=== PATIENT | female | born 2000 | race Two or more races ===

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

== ENCOUNTER 2018-05-29 18:50 | Inpatient (IN) | payer OTHER ==
[2018-05-29 21:36] LABS: BASO % 0.2 % (0-2.0); HEMATOCRIT 32.6 % (32.4-45.2); HEMOGLOBIN 11.3 GM/dL (10.7-15.3); LYMPH % 17.4 % (8-40); MCH 30.6 pg (25.7-33.7); MCHC 34.6 g/dl (32.0-36.0); MEAN CELL VOLUME 88.4 fl (80-96); MONO % 4.9 % (3.8-10.2); NEUT % 75.5 % (42.8-82.8); PLATELET COUNT 177 K/MM3 (134-434); RBC 3.68 M/mm3 (3.60-5.2); RDW 13.6 % (11.6-15.6); WHITE BLOOD COUNT 11.5 K/mm3 (4.0-10.0)
[2018-05-29 21:39] VITALS: BMI 37.1
[2018-05-29 21:48] LABS: INR 0.92 (0.83-1.09); PROTHROMBIN TIME (PATIENT) 10.8 SEC (9.7-13.0)
[2018-05-29 21:51] LABS: ACTIVATED PTT 23.7 SECONDS (25.2-36.5)
[2018-05-29] MEDS ORDERED: BUTORPHANOL TARTRATE 1 MG/ML VIAL ONE ×2 (21:51)
[2018-05-29] MEDS ORDERED: PROMETHAZINE HCL 25 MG/1 ML VIAL ONE (21:51)
--- NOTE | 2018-05-29 22:05 | PN ---
Progress Note (short form) - Note Progress Note: cx 3 cm, 70 vx -2 mi, fhr cat 1, irregular contraction, pitocin discussed , srba explained
[2018-05-29] MEDS ORDERED: OXYTOCIN 30 UNITS in 0.9% NS 30 UNIT/500 ML INFUS.BAG IVPB ONE (22:06)
[2018-05-29 22:07] LABS: ANION GAP 7 MMOL/L (8-16); BLOOD UREA NITROGEN 14 mg/dL (7-18); CALCIUM 8.7 mg/dL (8.5-10.1); CHLORIDE 106 mmol/L (98-107); CO2 24 mmol/L (21-32); CREATININE 0.6 mg/dL (0.55-1.3); GLUCOSE,RANDOM 78 mg/dL (74-106); POTASSIUM 4.6 mmol/L (3.5-5.1); SODIUM 137 mmol/L (136-145)
--- NOTE | 2018-05-29 22:11 | HP ---
Past Medical History - Primary Care Physician PCP:: Murali Ruiz - Admission Chief Complaint: 40 weeks, labor History of Present Illness: 18 yo f 40 weeks, c/o contraction, cx 3cm 70 vx -2 mi, fhr cat 1, irregular contraction[facility], no complication, GBS negative History Source: Patient Limitations to Obtaining History: No Limitations - Past Medical History ...: 1 ...Para: 0 ...Term: 0 ...: 0 ...Spon : 0 ...Induced : 0 ...Multiple Gestation: 0 ...LMP: 08/23/17 ... Weeks Gestation by Dates: 39.6 ...EDC by Dates: 05/30/18 ...EDC by Sono: 05/24/18 - Past Surgical History Hx Myomectomy: No Hx Transabdominal Cerclage: No - Smoking History Smoking history: Never smoked Have you smoked in the past 12 months: No Aproximately how many cigarettes per day: 0 - Alcohol/Substance Use Hx Alcohol Use: No - Social History History of Recent Travel: No Home Medications - Allergies Allergies/Adverse Reactions: Allergies Allergy/AdvReac Type Severity Reaction Status Date / Time No Known Allergies Allergy Verified 10/02/17 14:00 - Home Medications Home Medications: Ambulatory Orders Albuterol Sulfate Inhaler - [Ventolin HFA Inhaler -] 1 - 2 inh PO PRN PRN No122/Iron/Folic Acid [ Multi Tablet] 1 each PO DAILY #30 tablet MDD 1 tab 10/02/17 Albuterol Sulfate Inhaler - [Ventolin Hfa Inhaler -] 1 puff IH PRN PRN 05/04/18 Budesonide/Formeterol Fumarate [SYMBICORT 160/4.5mcg -] 1 puff IH PRN PRN Ferrous Sulfate [Iron] 325 mg PO BID 05/04/18 Review of Systems - Review of Systems Constitutional: reports: No Symptoms Eyes: reports: No Symptoms HENT: reports: No Symptoms Neck: reports: No Symptoms Cardiovascular: reports: No Symptoms Respiratory: reports: No Symptoms Gastrointestinal: reports: No Symptoms Genitourinary: reports: No Symptoms Breasts: reports: No Symptoms Reported Musculoskeletal: reports: No Symptoms Integumentary: reports: No Symptoms Neurological: reports: No Symptoms Endocrine: reports: No Symptoms Physical Exam - Maternity Vital Signs: Vital Signs Temperature 98.6 F 05/29/18 22:00 Pulse Rate 75 05/29/18 22:00 Respiratory Rate 18 05/29/18 22:00 Blood Pressure 117/62 05/29/18 22:00 O2 Sat by Pulse Oximetry (%) Constitutional: Yes: Obese Eyes: Yes: WNL, Conjunctiva Clear, EOM Intact HENT: Yes: WNL, Atraumatic, Normocephalic Neck: Yes: WNL, Supple, Trachea Midline Cardiovascular: Yes: WNL, Regular Rate and Rhythm Breast(s): Yes: WNL - Abdominal Exam/OB Fundal Height: 40 Number of Fetuses: Single Presentation: Vertex Regularity: Irregular Intensity: Moderate Monitor Mode: External Heart Rate Location: [facility] Category: I Accelerations: Uniform Decelerations: None - Vaginal Exam/OB Vaginal Bleediing: No Speculum Exam: No Dilatation (cm): 3 Effacement (%): 70 Amniotic Membrane Status: Bulging Presentation: Vertex/Position Station: -2 - Physical Exam Musculoskeletal: Yes: WNL Extremities: Yes: WNL Edema: Yes Edema: LLE: Trace, RLE: Trace Deep Tendon Reflex Grade: Normal +2 Psychiatric: Yes: WNL - Labs Lab Results: CBC, BMP 05/29/18 21:15 Hemorrhage Risk Assessment - Risk Factors Medium Risk Factors: Yes: None High Risk Factors: Yes: None Risk Score: 1 Risk Level: Medium Risk Problem List - Problems (1) 40 weeks gestation of Code(s): Z3A.40 - 40 WEEKS GESTATION OF (2) Labor established Code(s): [id number] - Assessment/Plan admit fhm pain managemet, if contraction irregular advised pitocin stimulation
[2018-05-29] MEDS ORDERED: PROMETHAZINE HCL 25 MG/1 ML VIAL IVPUSH ONE (22:15)
[2018-05-29] MEDS ORDERED: DEXTROSE 5%-LACTATED RINGERS 1,000 ML IV SCH (22:15)
[2018-05-29] MEDS ORDERED: BUTORPHANOL TARTRATE 1 MG/ML VIAL IVPUSH ONE (22:15)
[2018-05-29] MEDS ORDERED: OXYTOCIN 30 UNITS in 0.9% NS 30 UNIT/500 ML INFUS.BAG IVPB SCH (22:15)
[2018-05-30] MEDS ORDERED: FENTANYL/BUPIVACAINE/NS/PF - PCEA - 50 ML DISP.SYRIN EP ONE (00:53)
[2018-05-30] MEDS ORDERED: BUPIVACAINE HCL/PF 0.25% (2.5MG/ML) 10 ML VIAL ONE (02:02)
[2018-05-30] MEDS ORDERED: NALOXONE HCL 0.4 MG/ML VIAL IVPUSH PRN (02:29)
[2018-05-30] MEDS ORDERED: FENTANYL/BUPIVACAINE/NS/PF - PCEA - 50 ML DISP.SYRIN EP SCH (02:30)
--- NOTE | 2018-05-30 03:53 | PN ---
Progress Note (short form) - Note Progress Note: cx 5 cm, 100 vx 0, fhr cat 1, irregular contraction Problem List - Problems (1) 40 weeks gestation of Code(s): Z3A.40 - 40 WEEKS GESTATION OF (2) Labor established Code(s): [id number] -
[2018-05-30] MEDS ORDERED: OXYTOCIN 20 UNITS in 0.9% NS 20 UNIT/1,000 ML INFUS.BAG IV ONE (06:10)
[2018-05-30 06:53] LABS: COCAINE, UR NEGATIVE ng/ml (CUTOFF=300); METHADONE, UR NEGATIVE ng/ml (CUTOFF=300); OPIATES, URI NEGATIVE ng/ml (CUTOFF=300); PHENCYCLIDINE,URINE NEGATIVE ng/ml (CUTOFF=25); URINE AMPHETAMINES NEGATIVE ng/ml (CUTOFF=500); URINE BARBITURATES NEGATIVE ng/ml (CUTOFF=200); URINE BENZODIAZEPINES NEGATIVE ng/ml (CUTOFF=200)
[2018-05-30] MEDS ORDERED: LIDOCAINE HCL 1% PRESERVATIVE FREE - 30ML VIAL ONE (07:09)
[2018-05-30] MEDS ORDERED: BENZOCAINE 28 GM HEMORRHOIDAL OINTMENT TP PRN (07:24)
[2018-05-30] MEDS ORDERED: BENZOCAINE 20% 57 GM BOTTLE TP PRN (07:24)
[2018-05-30] MEDS ORDERED: WITCH HAZEL 50% (TUCKS) 40 PAD/JAR PAD TP PRN (07:24)
[2018-05-30] MEDS ORDERED: BISACODYL 10 MG SUPP.RECT RC PRN (07:24)
[2018-05-30] MEDS ORDERED: METHYLERGONOVINE MALEATE 0.2 MG/1 ML AMP IM PRN (07:24)
[2018-05-30] MEDS ORDERED: OXYTOCIN 20 UNITS in 0.9% NS 20 UNIT/1,000 ML INFUS.BAG IV SCH (07:30)
[2018-05-30] MEDS ORDERED: D5W-LR W/ 20 UNITS OXYTOCIN 1,000 ML IV SCH (07:30)
[2018-05-30] MEDS ORDERED: IBUPROFEN 600 MG TABLET (FP) PO ONE (08:15)
[2018-05-30] MEDS ORDERED: ACETAMINOPHEN 325 MG TABLET (FP) ONE (08:15)
[2018-05-30] MEDS: ACETAMINOPHEN 325 MG TABLET (FP) PO PRN (08:21)
[2018-05-30] MEDS: IBUPROFEN 600 MG TABLET (FP) PO PRN (08:22)
[2018-05-30 08:56] LABS: VENOUS PC02 55.4 mmHg (38-52); VENOUS PH 7.22 (7.32-7.42)
[2018-05-30] MEDS: PRENATAL VITAMINS W/ FOLIC ACID TABLET (FP) PO SCH (11:51)
[2018-05-30] MEDS: BUDESONIDE/FORMETEROL FUMARATE 160/4.5 mcg INHALER IH SCH ×3 (11:52→23:00)
[2018-05-30] MEDS: FERROUS SO4 325 MG TABLET (FP) PO SCH ×2 (11:52→23:00)
[2018-05-31 07:32] LABS: BASO % 0.4 % (0-2.0); EOS % 2.5 % (0-4.5); HEMATOCRIT 29.8 % (32.4-45.2); HEMOGLOBIN 10.2 GM/dL (10.7-15.3); LYMPH % 22.7 % (8-40); MCH 30.2 pg (25.7-33.7); MCHC 34.1 g/dl (32.0-36.0); MEAN CELL VOLUME 88.5 fl (80-96); MEAN PLT VOLUME 11.5 fl (7.5-11.1); MONO % 5.2 % (3.8-10.2); NEUT % 69.2 % (42.8-82.8); PLATELET COUNT 162 K/MM3 (134-434); RBC 3.36 M/mm3 (3.60-5.2); RDW 13.8 % (11.6-15.6); WHITE BLOOD COUNT 14.1 K/mm3 (4.0-10.0)
[2018-05-31] MEDS: PRENATAL VITAMINS W/ FOLIC ACID TABLET (FP) PO SCH (09:57)
[2018-05-31] MEDS: BUDESONIDE/FORMETEROL FUMARATE 160/4.5 mcg INHALER IH SCH ×2 (09:58→21:36)
[2018-05-31] MEDS: ALBUTEROL SO4 8 GM HFA INHALER IH PRN (10:00)
[2018-05-31] MEDS: FERROUS SO4 325 MG TABLET (FP) PO SCH ×2 (10:01→21:36)
--- NOTE | 2018-05-31 11:12 | PN ---
Post Progress Note - Subjective Subjective: 18 yo Para 1 status post vaginal delivery, seen and evaluated. Doing well. Post Day: 1 Type of Delivery: Vital Signs: Vital Signs Temperature 98.4 F 05/31/18 09:19 Pulse Rate 79 05/31/18 09:19 Respiratory Rate 20 05/31/18 09:19 Blood Pressure 101/50 L 05/31/18 09:19 O2 Sat by Pulse Oximetry (%) 100 05/30/18 09:10 Breast Exam: Yes: Soft Uterus: Yes: Fundus Firm Abdomen/GI: Yes: Abdomen soft, Tolerating PO Lochia: Yes: Rubra Lochia, amount: Moderate Extremities: Yes: Calves non-tender Activity: Ambulating - Labs Labs: CBC WBC 14.1 K/mm3 (4.0-10.0) H 05/31/18 07:00 RBC 3.36 M/mm3 (3.60-5.2) L 05/31/18 07:00 Hgb 10.2 GM/dL (10.7-15.3) L 05/31/18 07:00 Hct 29.8 % (32.4-45.2) L 05/31/18 07:00 MCV 88.5 fl (80-96) 05/31/18 07:00 MCH 30.2 pg (25.7-33.7) 05/31/18 07:00 MCHC 34.1 g/dl (32.0-36.0) 05/31/18 07:00 RDW 13.8 % (11.6-15.6) 05/31/18 07:00 Plt Count 162 K/MM3 (134-434) 05/31/18 07:00 MPV 11.5 fl (7.5-11.1) H 05/31/18 07:00 Absolute Neuts (auto) 9.8 K/mm3 (1.5-8.0) H 05/31/18 07:00 Neutrophils % 69.2 % (42.8-82.8) 05/31/18 07:00 Lymphocytes % 22.7 % (8-40) D 05/31/18 07:00 Monocytes % 5.2 % (3.8-10.2) 05/31/18 07:00 Eosinophils % 2.5 % (0-4.5) 05/31/18 07:00 Basophils % 0.4 % (0-2.0) 05/31/18 07:00 Nucleated RBC % 0 % (0-0) 05/31/18 07:00 Problem List - Problems (1) Status post normal vaginal delivery Code(s): [id number] - Assessment/Plan Status post vaginal delivery Stable Continue routine care
[2018-05-31] MEDS: IBUPROFEN 600 MG TABLET (FP) PO PRN ×3 (12:40→21:42)
[2018-05-31] MEDS: ACETAMINOPHEN 325 MG TABLET (FP) PO PRN ×3 (12:41→21:43)
[2018-05-31] MEDS ORDERED: SENNOSIDES/DOCUSATE COMBO (SENNA PLUS) TABLET (UD) PO PRN (22:00)
[2018-06-01] MEDS: IBUPROFEN 600 MG TABLET (FP) PO PRN (07:49)
[2018-06-01] MEDS: ACETAMINOPHEN 325 MG TABLET (FP) PO PRN (07:50)
[2018-06-01] MEDS: ALBUTEROL SO4 8 GM HFA INHALER IH PRN (07:53)
--- NOTE | 2018-06-01 08:04 | DS ---
Physical Exam-ALUMINUM SHINGLE ROOFER Vital Signs: Vital Signs Temperature 98.4 F 05/31/18 22:00 Pulse Rate 88 05/31/18 22:00 Respiratory Rate 20 05/31/18 22:00 Blood Pressure 111/71 05/31/18 22:00 O2 Sat by Pulse Oximetry (%) 100 05/30/18 09:10 Constitutional: Yes: Well Nourished Eyes: Yes: Conjunctiva Clear HENT: Yes: Atraumatic Neck: Yes: Supple Cardiovascular: Yes: Regular Rate and Rhythm Respiratory: Yes: Regular Gastrointestinal: Yes: Normal Bowel Sounds Vaginal Exam: Yes: Normal Cervix: Yes: Normal Uterus: Yes: Normal ....Post : Yes: Uterus firm Musculoskeletal: Yes: WNL Extremities: Yes: WNL Neurological: Yes: Alert, Oriented ...Motor Strength: WNL Psychiatric: Yes: Alert, Oriented Labs: CBC, BMP 05/31/18 07:00 05/29/18 21:15 Delivery - Delivery Type of Anesthesia: Epidural Episiotomy/Laceration: None EBL (cc): 300 Delivery, Single - Stages of Labor Date 1st Stage Initiatied: 05/29/18 Time 1st Stage Initiated: 22:00 Date 2nd Stage Initiated: 05/30/18 Time 2nd Stage Initiated: 06:00 Date of Delivery: 05/30/18 Time of Delivery: 07:54 Time Placenta Delivered: 07:56 - Condition of Stave Cutting Supervisor/Type Caster Present: No Gender: Female Weight: 6 lb 6 oz Position: Left, OA Total Hours ROM (Hrs/Mins): 6hrs 56min - 1 Minute Total Score: 9 5 Minutes Total Score: 9 - Feeding Plan Initial Plan: Elected not to breastfeed exclusively throughout hospitalization Discharge Summary Reason For Visit: LABOR Current Active Problems 40 weeks gestation of (Acute) Labor established (Acute) Status post normal vaginal delivery (Acute) Procedures: Principal: Normal spontaneous vaginal delivery Hospital Course: Routine care - Instructions Diet, Activity, Other Instructions: Regular diet No douching, no sexual intercourse x 6 weeks F/U in clinic in 6 weeks - Home Medications Comprehensive Discharge Medication List: Ambulatory Orders Albuterol Sulfate Inhaler - [Ventolin HFA Inhaler -] 1 - 2 inh PO PRN PRN No122/Iron/Folic Acid [ Multi Tablet] 1 each PO DAILY #30 tablet MDD 1 tab 10/02/17 Albuterol Sulfate Inhaler - [Ventolin Hfa Inhaler -] 1 puff IH PRN PRN 05/04/18 Budesonide/Formeterol Fumarate [SYMBICORT 160/4.5mcg -] 1 puff IH PRN PRN Ferrous Sulfate [Iron] 325 mg PO BID 05/04/18
[2018-06-01 09:21] VITALS: BP 106/58; PULSE 79; TEMP 98.5
[2018-06-01] MEDS: PRENATAL VITAMINS W/ FOLIC ACID TABLET (FP) PO SCH (09:45)
[2018-06-01] MEDS: FERROUS SO4 325 MG TABLET (FP) PO SCH (09:45)
[2018-06-01] MEDS: BUDESONIDE/FORMETEROL FUMARATE 160/4.5 mcg INHALER IH SCH (09:46)
== END 2018-06-01 12:40 | disposition home or self-care (01) | DRG 560 ==
LOC: JDEL 18:50 → JLDR 20:35 → J3W 05-30 09:48
PROVIDERS: ADMIT Obstetrics & Gynecology; ATTEND Obstetrics & Gynecology
PROC: 10E0XZZ Delivery of Products of Conception, External Approach (ICD-10-PCS; principal; 2018-05-30)
DX: O48.0 Post-term pregnancy (principal); Z3A.40 40 weeks gestation of pregnancy; Z37.0 Single live birth
CPT/HCPCS: 36415; 36600; 59025; 59409; 80048; 80307; 82803; 85025; 85610; 85730; 86593; 86850; 86900; 86901; 87389

== ENCOUNTER 2018-12-04 12:48 | Emergency (ER) | payer OTHER ==
[2018-12-04 13:11] VITALS: BP 118/61; PULSE 72; TEMP 98.4; BMI 38.3
--- NOTE | 2018-12-04 13:32 | PDOC ---
History of Present Illness - General Chief Complaint: Pain Stated Complaint: ABD PAIN Time Seen by Provider: 12/04/18 13:09 - History of Present Illness Initial Comments: 12/04/18 13:35 18 y/o F hx of asthma presenting to the ED with 4 days of abdominal pain. She states pain began 4 days ago and is intermittent and stabbing. Pain is located across the lower abdomen and radiates to her back. She denies any trauma to the area. Pain has been accompanied by burning on urination, frequency , urgency and vaginal spotting. She felt warm yesterday and thinks she may have had a fever. She also experienced an episode of diaphoresis. Pt reports having had a Nuvaring inserted for contraception, which may/may not have fallen out after sexual intercourse. She denies any nausea, vomiting, diarrhea. 12/04/18 16:19 Past History - Past Medical History Allergies/Adverse Reactions: Allergies Allergy/AdvReac Type Severity Reaction Status Date / Time No Known Allergies Allergy Verified 12/04/18 13:02 Home Medications: Ambulatory Orders Albuterol Sulfate Inhaler - [Ventolin HFA Inhaler -] 1 - 2 inh PO PRN PRN No122/Iron/Folic Acid [ Multi Tablet] 1 each PO DAILY #30 tablet MDD 1 tab 10/02/17 Albuterol Sulfate Inhaler - [Ventolin Hfa Inhaler -] 1 puff IH PRN PRN 05/04/18 Budesonide/Formeterol Fumarate [SYMBICORT 160/4.5mcg -] 1 puff IH PRN PRN Ferrous Sulfate [Iron] 325 mg PO BID 05/04/18 Cephalexin [Keflex] 500 mg PO QID 7 Days #28 capsule 12/04/18 Asthma: Yes (brought on by pain. Last TODAY) Cancer: No Cardiac Disorders: No COPD: No Diabetes: No GI Disorders: Yes (gerd) HTN: No Seizures: No Thyroid Disease: No - Surgical History Abdominal Surgery: No - Immunization History TDAP Vaccination: Yes Immunization Up to Date: Yes - Suicide/Smoking/Psychosocial Hx Smoking Status: No Smoking History: Unknown if ever smoked Years of Tobacco Use: 0 Have you smoked in the past 12 months: No Number of Cigarettes Smoked Daily: 0 Cigars Per Day: 0 Information on smoking cessation initiated: No Hx Alcohol Use: No Drug/Substance Use Hx: No Substance Use Type: None Hx Substance Use Treatment: No Review of Systems - Review of Systems Constitutional: Yes: Other (subjective fever) HEENTM: No: Eye Pain, Blurred Vision Respiratory: No: Cough, Shortness of Breath Cardiac (ROS): No: Chest Pain, Lightheadedness ABD/GI: Yes: Symptoms Reported : Yes: Symptoms Reported Musculoskeletal: Yes: Back Pain (chronic ) Neurological: Yes: Tingling. No: Headache *Physical Exam - Vital Signs Last Vital Signs Temp Pulse Resp BP Pulse Ox 98.4 F 72 16 118/61 100 12/04/18 12:58 12/04/18 12:58 12/04/18 12:58 12/04/18 12:58 12/04/18 12:58 - Physical Exam General Appearance: Yes: Nourished, Appropriately Dressed. No: Apparent Distress HEENT: positive: Normal Voice. negative: Scleral Icterus (R), Scleral Icterus ( L) Neck: positive: Trachea midline, Supple. negative: Tender Respiratory/Chest: positive: Lungs Clear, Normal Breath Sounds. negative: Chest Tender, Respiratory Distress, Accessory Muscle Use Cardiovascular: positive: Regular Rhythm, Regular Rate, S1, S2. negative: Edema , JVD Vascular Pulses: Dorsalis-Pedis (R): 2+, Doralis-Pedis (L): 2+ Female Pelvic Exam: positive: normal external exam, cervical os closed, adnexal tenderness (left adnexal tenderness). negative: CMT, vaginal bleeding Gastrointestinal/Abdominal: positive: Normal Bowel Sounds, Soft, Protuberent, Tenderness (epigastric and left lower quadrant) Musculoskeletal: positive: Normal Inspection. negative: CVA Tenderness, CVA Tenderness (R) Extremity: positive: Normal Capillary Refill, Normal Inspection, Normal Range of Motion. negative: Tender Integumentary: positive: Normal Color, Warm. negative: Cyanotic Neurologic: positive: Fully Oriented, Alert, Normal Mood/Affect, Normal Response , Motor Strength /5 ED Treatment Course - LABORATORY CBC & Chemistry Diagram: 12/04/18 14:36 12/04/18 14:36 Medical Decision Making - Medical Decision Making 12/04/18 13:39 18 y/o F hx of asthma presenting to the ED with 4 days of abdominal pain Labs/Imaging/Meds TVUS, serum hcg, cbc, cmp, lipase, ua, urine culture UA: + for leukocyte esterase and bacteria HCG -negative TVUS: No evidence of adnexal mass or free pelvic fluid. no uterine mass Meds: Po tylenol 975mg for pain 12/04/18 16:22 *DC/Admit/Observation/Transfer Diagnosis at time of Disposition: UTI (urinary tract infection) Qualifiers: Urinary tract infection type: site unspecified Hematuria presence: without hematuria Qualified Code(s): N39.0 - Urinary tract infection, site not specified - Discharge Dispostion Disposition: HOME Condition at time of disposition: Stable Decision to Admit order: No - Prescriptions Prescriptions: Cephalexin [Keflex] 500 mg PO QID 7 Days #28 capsule - Referrals Referrals: Radha Munguia MD [Primary Care Provider] - - Patient Instructions Printed Discharge Instructions: Urinary Tract Infection Additional Instructions: UTI Discharge: HOME CARE INSTRUCTIONS - You were prescribed antibiotics, take them exactly as your caregiver instructs you. Finish the medication even if you feel better! Drink enough water and fluids to keep your urine clear or pale yellow. Avoid caffeine, tea, and carbonated beverages - these can irritate your bladder. Empty your bladder often. Avoid holding urine for long periods of time. Empty your bladder before and after sexual intercourse. After a bowel movement, women should cleanse from front to back. Use each tissue only once. SEEK MEDICAL CARE IF: You have back pain. You develop a fever. Your symptoms do not begin to resolve within 3 days. SEEK IMMEDIATE MEDICAL CARE IF: You have severe back pain or lower abdominal pain. You develop chills. You have nausea or vomiting. You have continued burning or discomfort with urination. Follow up with your primary care provider Dr. Munguia in the next few days. Your care is not complete until you follow up with him - Post Discharge Activity
[2018-12-04 14:54] LABS: BASO % 0.4 % (0-2.0); EOS % 3.6 % (0-4.5); HEMATOCRIT 35.6 % (32.4-45.2); HEMOGLOBIN 12.1 GM/dL (10.7-15.3); LYMPH % 19.3 % (8-40); MCH 28.9 pg (25.7-33.7); MCHC 33.8 g/dl (32.0-36.0); MEAN CELL VOLUME 85.5 fl (80-96); MEAN PLT VOLUME 9.9 fl (7.5-11.1); NEUT % 71.7 % (42.8-82.8); PLATELET COUNT 267 K/MM3 (134-434); RBC 4.17 M/mm3 (3.60-5.2); RDW 14.3 % (11.6-15.6)
[2018-12-04 15:24] LABS: ALBUMIN 3.9 g/dl (3.4-5.0); BILIRUBIN,TOTAL 0.7 mg/dL (0.2-1); BLOOD UREA NITROGEN 14.8 mg/dL (7-18); CALCIUM 9.2 mg/dL (8.5-10.1); CREATININE 0.7 mg/dL (0.55-1.3); POTASSIUM 3.9 mmol/L (3.5-5.1); TOT PROT 7.2 g/dl (6.4-8.2)
[2018-12-04 15:45] LABS: EPI CELLS 1.1 /HPF (0-5/HPF); HYALINE CASTS 2 /lpf (0-8); URINE APPEARANCE CLOUDY; URINE BACTERIA 543.4 /hpf (NEGATIVE); URINE BILIRUBIN NEGATIVE (NEGATIVE); URINE COLOR YELLOW; URINE GLUCOSE (UA) NEGATIVE (NEGATIVE); URINE KETONE NEGATIVE (NEGATIVE); URINE LEUK ESTERASE 2+ (NEGATIVE); URINE NITRITE NEGATIVE (NEGATIVE); URINE PROTEIN TRACE (NEGATIVE); URINE RBC 4 /hpf (0-4); URINE WBC 213 /hpf (0-5)
[2018-12-04] MEDS ORDERED: ACETAMINOPHEN 500 MG TABLET (FP) PO ONE (16:00)
[2018-12-04] MEDS ORDERED: ACETAMINOPHEN 325 MG TABLET (FP) ONE (16:15)
--- NOTE | 2018-12-04 16:27 | PDOC ---
Attending Attestation - Resident Resident Name: Sundeep Villa - ED Attending Attestation I have performed the following: I have examined & evaluated the patient, The case was reviewed & discussed with the resident, I agree w/resident's findings & plan - HPI HPI: 12/04/18 16:24 healthy 18y/o F p/w lower abd pain x4d. - Physicial Exam PE: 12/04/18 16:25 vss, afebrile, urine preg negative alert, nad suprapubic discomfort to palpation, no cvat - Medical Decision Making 12/04/18 16:26 18y/o F with lower abd pain, not . labs wnl ua with UTI - tx with abx. Ucx sent. pelvis u/s normal understands return criteria
== END 2018-12-04 16:20 | disposition home or self-care (01) ==
LOC: JER 12:48
DX: N39.0 Urinary tract infection, site not specified (principal); J45.909 Unspecified asthma, uncomplicated
CPT/HCPCS: 36415; 76830-TC; 80053; 81003; 84703; 85025; 87086; 87186; 99283-25

== ENCOUNTER 2021-09-10 15:18 | Emergency (ER) | payer OTHER ==
[2021-09-10 15:29] VITALS: PULSE 75; TEMP 98.6; BMI 33.3
[2021-09-10] MEDS ORDERED: KETOROLAC TROMETHAMINE 30 MG/1 ML VIAL IVPUSH ONE (17:37)
[2021-09-10] MEDS ORDERED: SODIUM CHLORIDE 0.9% 500 ML INFUS.BAG IV ONE (17:37)
[2021-09-10] MEDS ORDERED: METOCLOPRAMIDE HCL INJECTION 10 MG/2 ML VIAL IVPUSH ONE ×2 (17:37→18:46)
[2021-09-10] MEDS ORDERED: KETOROLAC TROMETHAMINE 30 MG/1 ML VIAL ONE (18:01)
[2021-09-10] MEDS ORDERED: METOCLOPRAMIDE HCL INJECTION 10 MG/2 ML VIAL ONE ×2 (18:01→18:48)
[2021-09-10] MEDS ORDERED: diazePAM 5 MG TABLET PO ONE (18:52)
[2021-09-10] MEDS ORDERED: diazePAM 5 MG TABLET ONE (18:52)
[2021-09-10] MEDS ORDERED: ACETAMINOPHEN 500 MG TABLET (FP) PO ONE (19:59)
[2021-09-10] MEDS ORDERED: ACETAMINOPHEN 500 MG TABLET (FP) ONE (20:00)
[2021-09-10 20:39] VITALS: BP 113/65
== END 2021-09-10 20:43 | disposition home or self-care (01) ==
LOC: JER 15:18 → JERFT 15:18
PROC: 3E033NZ Introduction of Analgesics, Hypnotics, Sedatives into Peripheral Vein, Percutaneous Approach (ICD-10-PCS; principal; 2021-09-10)
PROC: 3E0333Z Introduction of Anti-inflammatory into Peripheral Vein, Percutaneous Approach (ICD-10-PCS; 2021-09-10)
PROC: 3E033GC Introduction of Other Therapeutic Substance into Peripheral Vein, Percutaneous Approach (ICD-10-PCS; 2021-09-10)
PROC: 3E033GC Introduction of Other Therapeutic Substance into Peripheral Vein, Percutaneous Approach (ICD-10-PCS; 2021-09-10)
DX: G43.909 Migraine, unspecified, not intractable, without status migrainosus (principal)
CPT/HCPCS: 99284-25

== ENCOUNTER 2022-01-23 16:09 | Emergency (ER) | payer OTHER ==
[2022-01-23 16:42] VITALS: BP 100/60; PULSE 115; RESP 16; TEMP 97.8; BMI 33.3
[2022-01-23] MEDS ORDERED: ALBUTEROL SO4 2.5/IPRATROPIUM 0.5 INH SOL 3 ML VIAL.NEB. NEB ONE (17:38)
[2022-01-23] MEDS ORDERED: DEXAMETHASONE 4 MG TABLET (FP) PO ONE (17:39)
[2022-01-23] MEDS ORDERED: DEXAMETHASONE SOD PHOSPHATE 10 MG/1 ML VIAL ONE (18:34)
== END 2022-01-23 18:41 | disposition home or self-care (01) ==
LOC: JER 16:09 → JERFT 16:09
PROC: 3E0F7GC Introduction of Other Therapeutic Substance into Respiratory Tract, Via Natural or Artificial Opening (ICD-10-PCS; principal; 2022-01-23)
DX: J45.21 Mild intermittent asthma with (acute) exacerbation (principal); J09.X2 Influenza due to identified novel influenza A virus with other respiratory manifestations
CPT/HCPCS: 0241U-QW; 99283-25

== ENCOUNTER 2022-07-12 10:07 | Emergency (ER) | payer OTHER ==
[2022-07-12 10:16] VITALS: BMI 33.3
[2022-07-12 11:43] LABS: HCG,QUALITATIVE URINE Negative
[2022-07-12 11:51] LABS: PH,URINE 6.5 (5.0-8.0); URINE APPEARANCE CLEAR; URINE BILIRUBIN NEGATIVE (NEGATIVE); URINE COLOR YELLOW; URINE GLUCOSE (UA) NEGATIVE (NEGATIVE); URINE KETONE NEGATIVE (NEGATIVE); URINE LEUK ESTERASE NEGATIVE (NEGATIVE); URINE NITRITE NEGATIVE (NEGATIVE); URINE PROTEIN NEGATIVE (NEGATIVE); URINE UROBILINOGEN 0.2 mg/dL (0.2-1.0)
[2022-07-12 12:03] LABS: BASO % 0.5 % (0-2.0); EOS % 5.9 % (0-4.5); HEMATOCRIT 33.3 % (32.4-45.2); HEMOGLOBIN 11.8 GM/dL (10.7-15.3); LYMPH % 19.6 % (8-40); MCH 30.1 pg (25.7-33.7); MCHC 35.4 g/dl (32.0-36.0); MEAN CELL VOLUME 85.3 fl (80-96); MEAN PLT VOLUME 10.5 fl (7.5-11.1); MONO % 5.5 % (3.8-10.2); NEUT % 68.5 % (42.8-82.8); PLATELET COUNT 273 10^3/uL (134-434); RDW 14.5 % (11.6-15.6); WHITE BLOOD COUNT 9.4 K/mm3 (4.0-10.0)
[2022-07-12 12:30] LABS: ALBUMIN 3.6 g/dl (3.4-5.0)
[2022-07-12 12:31] LABS: BLOOD UREA NITROGEN 15.1 mg/dL (7-18)
[2022-07-12 12:33] LABS: CREATININE 0.9 mg/dL (0.55-1.3)
[2022-07-12] MEDS ORDERED: ACETAMINOPHEN 325 MG TABLET (FP) PO ONE (12:34)
[2022-07-12 12:35] LABS: BILIRUBIN,TOTAL 0.3 mg/dL (0.2-1); TOT PROT 7.1 g/dl (6.4-8.2)
[2022-07-12] MEDS ORDERED: ACETAMINOPHEN 325 MG TABLET (FP) ONE (12:37)
[2022-07-12] MEDS ORDERED: ONDANSETRON 4 MG/2 ML VIAL ONE (15:20)
[2022-07-12] MEDS ORDERED: SODIUM CHLORIDE 0.9% 1000 ML INFUS.BAG IV ONE (15:25)
[2022-07-12] MEDS ORDERED: ONDANSETRON 4 MG/2 ML VIAL IVPUSH ONE (15:25)
[2022-07-12 16:29] VITALS: BP 104/58; PULSE 74; RESP 16; TEMP 98.4
[2022-07-12] MEDS ORDERED: DOXYCYCLINE HYCLATE 100 MG CAPSULE PO ONE ×2 (16:38→16:46)
[2022-07-12] MEDS ORDERED: CEFTRIAXONE 1 GM/50 ML BAG ONE (16:48)
[2022-07-12] MEDS ORDERED: CEFTRIAXONE 1,000 MG in DEXTROSE 5%-WATER - 50 ML IVPB ONE (16:56)
[2022-07-12 17:39] LABS: HIV INTERPRETATION NEGATIVE (NEGATIVE)
== END 2022-07-12 17:09 | disposition home or self-care (01) ==
LOC: JERFT 10:07
PROC: 3E033GC Introduction of Other Therapeutic Substance into Peripheral Vein, Percutaneous Approach (ICD-10-PCS; principal; 2022-07-12)
DX: R10.32 Left lower quadrant pain (principal); R11.2 Nausea with vomiting, unspecified; R30.0 Dysuria
CPT/HCPCS: 36415; 74177-TC; 76830-TC; 80053; 81003; 84703; 85025; 87070; 87077; 87086; 87205; 87389; 87491; 87591; 99285-25; Q9967

== ENCOUNTER 2022-10-27 23:50 | Emergency (ER) | payer OTHER ==
[2022-10-27 23:57] VITALS: RESP 16; BMI 36.3
[2022-10-28] MEDS ORDERED: ONDANSETRON 4 MG/2 ML VIAL IVPUSH ONE ×2 (00:53→02:51)
[2022-10-28] MEDS ORDERED: ACETAMINOPHEN 1000 MG/100 ML BAG IVPB ONE ×2 (00:53→05:34)
[2022-10-28] MEDS ORDERED: ACETAMINOPHEN INJECTION 100 ML IVPB ONE ×2 (00:59→05:40)
[2022-10-28] MEDS ORDERED: ONDANSETRON 4 MG/2 ML VIAL ONE ×2 (01:02→02:53)
[2022-10-28 01:52] LABS: BASO % 0.6 % (0-2.0); EOS % 3.4 % (0-4.5); HEMATOCRIT 33.8 % (32.4-45.2); HEMOGLOBIN 11.5 GM/dL (10.7-15.3); LYMPH % 29.6 % (8-40); MCH 29.5 pg (25.7-33.7); MCHC 34.1 g/dl (32.0-36.0); MEAN CELL VOLUME 86.6 fl (80-96); MEAN PLT VOLUME 9.8 fl (7.5-11.1); MONO % 5.9 % (3.8-10.2); NEUT % 60.5 % (42.8-82.8); PLATELET COUNT 247 10^3/uL (134-434); RBC 3.91 M/mm3 (3.60-5.2); RDW 13.6 % (11.6-15.6); WHITE BLOOD COUNT 10.5 K/mm3 (4.0-10.0)
[2022-10-28 01:55] LABS: EPI CELLS 29 /uL (0-25.1); HYALINE CASTS 1 /uL (0-3.1); URINE APPEARANCE CLEAR; URINE BACTERIA 18 /uL (0-1359); URINE BILIRUBIN NEGATIVE (NEGATIVE); URINE COLOR YELLOW; URINE GLUCOSE (UA) NEGATIVE (NEGATIVE); URINE KETONE 1+ (NEGATIVE); URINE LEUK ESTERASE NEGATIVE (NEGATIVE); URINE NITRITE NEGATIVE (NEGATIVE); URINE PROTEIN 1+ (NEGATIVE); URINE RBC 8 /uL (0-23.9); URINE UROBILINOGEN 0.2 mg/dL (0.2-1.0); URINE WBC 13 /uL (0-25.8)
[2022-10-28 02:26] LABS: POTASSIUM 4.1 mmol/L (3.5-5.1)
[2022-10-28 02:28] LABS: ALBUMIN 4.2 g/dl (3.4-5.0); BLOOD UREA NITROGEN 19.1 mg/dL (7-18); CALCIUM 8.8 mg/dL (8.5-10.1)
[2022-10-28 02:31] LABS: CREATININE 1.1 mg/dL (0.55-1.3)
[2022-10-28 02:33] LABS: TOT PROT 7.6 g/dl (6.4-8.2)
[2022-10-28 02:47] LABS: BILIRUBIN,TOTAL 0.5 mg/dL (0.2-1)
[2022-10-28] MEDS ORDERED: KETOROLAC TROMETHAMINE 15 MG/ML VIAL IVPUSH ONE (02:52)
[2022-10-28] MEDS ORDERED: KETOROLAC TROMETHAMINE 15 MG/ML VIAL ONE (02:54)
[2022-10-28 06:29] VITALS: BP 95/65; PULSE 70; TEMP 98.1
== END 2022-10-28 07:30 | disposition home or self-care (01) ==
LOC: JER 23:50
PROC: 3E033NZ Introduction of Analgesics, Hypnotics, Sedatives into Peripheral Vein, Percutaneous Approach (ICD-10-PCS; principal; 2022-10-28)
PROC: 3E0333Z Introduction of Anti-inflammatory into Peripheral Vein, Percutaneous Approach (ICD-10-PCS; 2022-10-28)
PROC: 3E033GC Introduction of Other Therapeutic Substance into Peripheral Vein, Percutaneous Approach (ICD-10-PCS; 2022-10-28)
PROC: 3E033NZ Introduction of Analgesics, Hypnotics, Sedatives into Peripheral Vein, Percutaneous Approach (ICD-10-PCS; 2022-10-28)
DX: R10.32 Left lower quadrant pain (principal); R11.2 Nausea with vomiting, unspecified
CPT/HCPCS: 36415; 74176-TC; 76830-TC; 80053; 81003; 84703; 85025; 87086; 99285-25

== ENCOUNTER 2023-05-11 08:45 | Emergency (ER) | payer OTHER ==
[2023-05-11 08:51] VITALS: BP 101/67; PULSE 98; RESP 20; TEMP 99.6; BMI 37.3
[2023-05-11] MEDS ORDERED: predniSONE 20 MG TABLET (UD) ONE (09:11)
[2023-05-11] MEDS ORDERED: ALBUTEROL SO4 2.5/IPRATROPIUM 0.5 INH SOL 3 ML VIAL.NEB. NEB ONE ×2 (09:11→09:55)
[2023-05-11] MEDS ORDERED: ACETAMINOPHEN 500 MG TABLET (FP) ONE (09:11)
[2023-05-11] MEDS: ALBUTEROL SO4 2.5/IPRATROPIUM 0.5 INH SOL 3 ML VIAL.NEB. NEB ONE ×2 (09:16→09:56)
[2023-05-11] MEDS: predniSONE 20 MG TABLET (UD) PO ONE (09:16)
[2023-05-11] MEDS: ACETAMINOPHEN 500 MG TABLET (FP) PO ONE (09:16)
== END 2023-05-11 10:50 | disposition home or self-care (01) ==
LOC: JERFT 08:45
PROC: 3E0F7GC Introduction of Other Therapeutic Substance into Respiratory Tract, Via Natural or Artificial Opening (ICD-10-PCS; principal; 2023-05-11)
PROC: 3E0F7GC Introduction of Other Therapeutic Substance into Respiratory Tract, Via Natural or Artificial Opening (ICD-10-PCS; 2023-05-11)
DX: H92.03 Otalgia, bilateral (principal); R06.02 Shortness of breath; R05.9 Cough, unspecified; H66.93 Otitis media, unspecified, bilateral; J45.901 Unspecified asthma with (acute) exacerbation; Z20.822 Contact with and (suspected) exposure to COVID-19
CPT/HCPCS: 0241U-QW; 99284-25